=== PATIENT | female | born 1980 | race Hispanic/Latino ===

== ENCOUNTER 2018-10-25 16:37 | Emergency (ER) | payer OTHER ==
--- NOTE | 2018-10-25 17:02 | RAD ---
Left ankle 3 views HISTORY: Left ankle injury. FINDINGS: Ankle mortise and talar dome are intact. No acute fracture, dislocation, or aggressive osse ous erosions. IMPRESSION: No acute osseous abnormalities are demonstrated.
[2018-10-25] MEDS ORDERED: Ibuprofen 800 MG TAB ONE (17:23)
== END 2018-10-25 17:41 | disposition home or self-care (01) ==
LOC: ERS 16:37
DX: S93.402A Sprain of unspecified ligament of left ankle, initial encounter (principal); X58.XXXA Exposure to other specified factors, initial encounter